=== PATIENT | male | born 1955 | race Caucasian/White ===

== ENCOUNTER 2016-08-14 11:37 | Emergency (ER) | payer OTHER, MEDICARE ==
[~2016-08-14] VITALS: Ht 170.2 cm; Wt 84.0 kg
[~2016-08-14 11:37] MED LIST: ASPI-1035 PO; CLON1TAB PO; DIVA500T PO; LISI10TA5 PO; METO50TA5 PO; QUET200T PO; QUET400T4 PO
[2016-08-14 11:40] VITALS: BP 130/80
== END 2016-08-14 19:33 | disposition left against medical advice (07) ==
LOC: ER 11:57
DX: Z00.8 Encounter for other general examination (principal); Z53.21 Procedure and treatment not carried out due to patient leaving prior to being seen by health care provider

== ENCOUNTER 2017-04-06 19:18 | Emergency (ER) | payer OTHER, MEDICARE ==
[~2017-04-06] VITALS: Ht 170.2 cm; Wt 77.0 kg
[~2017-04-06 19:18] MED LIST changes: -ASPI-1035 PO; +ASPI-1159 PO; +METO-539 PO; -METO50TA5 PO
[2017-04-06 19:33] VITALS: BP 140/77
== END 2017-04-06 22:15 | disposition left against medical advice (07) ==
LOC: ER 20:25
DX: Z53.21 Procedure and treatment not carried out due to patient leaving prior to being seen by health care provider (principal)

== ENCOUNTER 2018-02-24 10:53 | Emergency (ER) | payer OTHER, MEDICARE ==
[~2018-02-24] VITALS: Ht 172.7 cm; Wt 80.0 kg
[~2018-02-24 10:53] MED LIST changes: +DIVA-75 PO; -DIVA500T PO
[2018-02-24 11:09] VITALS: BP 173/86
== END 2018-02-24 11:34 | disposition home or self-care (01) ==
LOC: ER 10:53
DX: I10 Essential (primary) hypertension (principal); Z86.59 Personal history of other mental and behavioral disorders; Z79.899 Other long term (current) drug therapy; Z79.82 Long term (current) use of aspirin
CPT/HCPCS: 82962; 99283

== ENCOUNTER 2019-09-17 22:11 | Emergency (ER) | payer OTHER, MEDICARE ==
[~2019-09-17] VITALS: Ht 175.3 cm; Wt 82.0 kg
[~2019-09-17 22:11] MED LIST changes: -ASPI-1159 PO; +ASPI-1497 PO
[2019-09-18] MEDS ORDERED: LORAZEPAM 1MG TABLET PO ONE (00:15)
[2019-09-18 00:26] VITALS: BP 135/79
== END 2019-09-18 00:27 | disposition home or self-care (01) ==
LOC: ER 22:11
DX: F41.0 Panic disorder [episodic paroxysmal anxiety] (principal); R03.0 Elevated blood-pressure reading, without diagnosis of hypertension
CPT/HCPCS: 99283

== ENCOUNTER 2024-04-25 13:10 | Emergency (ER) | payer OTHER, MEDICARE ==
[~2024-04-25] VITALS: Ht 170.2 cm; Wt 87.0 kg
[~2024-04-25 13:10] MED LIST changes: -CLON1TAB PO; +CLON1TAB2 PO; +LISI10TA26 PO; -LISI10TA5 PO
[2024-04-25] MEDS: HALOPERIDOL LACTATE 5MG/ML VIAL IM STA (14:11)
[2024-04-25] MEDS: LORAZEPAM 2MG/ML INJ IM STA (14:11)
[2024-04-25] MEDS: DIPHENHYDRAMINE 50MG/ML VIAL IM STA (14:11)
[2024-04-25 15:15] VITALS: O2SAT 100
[2024-04-25 16:39] LABS: BASOPHILS % 0.3 % (0.0-2.0); DIFFERENTIAL COMMENT 0; EOSINOPHILS % 2.3 % (0.0-5.0); HEMOGLOBIN. 14.8 g/dL (14.0-18.0); LYMPHOCYTES % 30.6 % (20.0-50.0); MEAN CORPUSCULAR HEMOGLOBIN 34.7 pg (28.0-32.0); MEAN CORPUSCULAR HGB CONC 33.6 g/dL (31.0-37.0); MEAN CORPUSCULAR VOLUME 103.2 fL (80.0-94.0); MEAN PLATELET VOLUME 8.2 fl (7.4-10.4); MONOCYTES % 11.7 % (2.0-8.0); NEUTROPHILS % 55.1 % (40.0-76.0); PLATELET 140 x1000/uL (130-400); RED BLOOD CELL COUNT 4.26 mill/uL (4.7-6.1); RED CELL DISTRIBUTION WIDTH 13.3 % (11.6-14.6); WHITE BLOOD COUNT 5.4 x1000/uL (4.5-11.0)
[2024-04-25 16:40] LABS: CHLORIDE 108 mEq/L (98-107); POTASSIUM 4.4 mEq/L (3.5-5.1); SODIUM 142 mEq/L (136-145)
[2024-04-25 16:41] LABS: CARBON DIOXIDE 31 mEq/L (21-32)
[2024-04-25 16:42] LABS: CALCIUM 9.2 mg/dL (8.7-10.4)
[2024-04-25 16:46] LABS: GLUCOSE 93 mg/dL (70-105)
[2024-04-25 16:47] LABS: UREA NITROGEN BLOOD 10 mg/dL (9-23)
[2024-04-25 16:49] LABS: ACETAMINOPHEN < 2 ug/mL (10-30)
[2024-04-25 16:52] LABS: ETHANOL BLOOD < 10 mg/dL (<10)
[2024-04-25 17:12] LABS: CLARITY URINE CLEAR (CLEAR); COLOR URINE YELLOW (YELLOW); GLUCOSE URINE 3+ (NEGATIVE); KETONES URINE 1+ (NEGATIVE); LEUKOCYTE ESTERASE URINE NEGATIVE (NEGATIVE); NITRITE URINE NEGATIVE (NEGATIVE); OCCULT BLOOD URINE NEGATIVE (NEGATIVE); PH URINE 7.5 (4.5-8.0); PROTEIN URINE 1+ (NEGATIVE); SPECIFIC GRAVITY URINE 1.024 (1.005-1.030)
[2024-04-25 17:21] LABS: *AMPHETAMINES SCREEN URINE NEGATIVE (NEGATIVE); *BENZODIAZEPINES SCREEN URINE NEGATIVE (NEGATIVE)
[2024-04-25 17:22] LABS: *BARBITURATES SCREEN URINE NEGATIVE (NEGATIVE); *COCAINE SCREEN URINE NEGATIVE (NEGATIVE); CANNABINOID URINE SCREEN NEGATIVE (NEGATIVE); ECSTASY MDMA SCREEN URINE NEGATIVE (NEGATIVE); METHADONE URINE SCREEN NEGATIVE (NEGATIVE); OPIATES URINE SCREEN NEGATIVE (NEGATIVE); PHENCYCLIDINE URINE SCREEN NEGATIVE (NEGATIVE)
[2024-04-25 17:37] LABS: BACTERIA URINE NONE SEEN; RBC URINE 0-2 /hpf (0-2); SQUAMOUS EPITHELIAL CELL URINE FEW /lpf (RARE/1+); WBC URINE NONE SEEN /hpf (0-2)
[2024-04-26] MEDS: LORAZEPAM 1MG TABLET PO ONE (05:18)
[2024-04-26] MEDS: ARIPIPRAZOLE 5MG TABLET PO SCH (10:12)
[2024-04-26 13:44] VITALS: BP 144/70; PULSE 88; RESP 16; TEMP 36.66960; O2SAT 100
[2024-04-26] MEDS ORDERED: QUETIAPINE FUMARATE 50MG TABLET PO SCH (21:00)
[2024-04-26] MEDS ORDERED: DIVALPROEX SODIUM 500MG DR TABLET PO SCH (21:00)
== END 2024-04-26 14:19 ==
LOC: ER 13:10
DX: R46.89 Other symptoms and signs involving appearance and behavior (principal); Z79.82 Long term (current) use of aspirin; Z79.899 Other long term (current) drug therapy; Z20.822 Contact with and (suspected) exposure to COVID-19
CPT/HCPCS: 80305; 80048; 81003; 80307; 80329; 80320; 85025; 36415; 96372; 99291; 87426; J1200; J1630; J2060; G0480

== ENCOUNTER 2024-09-15 03:51 | Emergency (ER) | payer MEDICARE, MEDICAID ==
[~2024-09-15] VITALS: Ht 177.8 cm; Wt 79.4 kg
[2024-09-15 03:58] VITALS: O2SAT 96
[2024-09-15 05:12] LABS: BASOPHILS % 0.8 % (0.0-2.0); DIFFERENTIAL COMMENT 0; EOSINOPHILS % 2.9 % (0.0-5.0); HEMATOCRIT. 47.4 % (42.0-52.0); HEMOGLOBIN. 15.8 g/dL (14.0-18.0); LYMPHOCYTES % 22.2 % (20.0-50.0); MEAN CORPUSCULAR HEMOGLOBIN 33.8 pg (28.0-32.0); MEAN CORPUSCULAR HGB CONC 33.4 g/dL (31.0-37.0); MEAN CORPUSCULAR VOLUME 101.5 fL (80.0-94.0); MEAN PLATELET VOLUME 8.2 fl (7.4-10.4); MONOCYTES % 11.2 % (2.0-8.0); NEUTROPHILS % 62.9 % (40.0-76.0); PLATELET 149 x1000/uL (130-400); RED BLOOD CELL COUNT 4.67 mill/uL (4.7-6.1); RED CELL DISTRIBUTION WIDTH 13.8 % (11.6-14.6); WHITE BLOOD COUNT 5.2 x1000/uL (4.5-11.0)
[2024-09-15 05:43] LABS: CHLORIDE 104 mEq/L (98-107); POTASSIUM 4.3 mEq/L (3.5-5.1); SODIUM 143 mEq/L (136-145)
[2024-09-15 05:44] LABS: CALCIUM 8.9 mg/dL (8.7-10.4); CARBON DIOXIDE 29 mEq/L (21-32)
[2024-09-15 05:49] LABS: CREATININE 1.1 mg/dL (0.6-1.3); GLUCOSE 109 mg/dL (70-105); UREA NITROGEN BLOOD 12 mg/dL (9-23)
[2024-09-15 05:51] LABS: ACETAMINOPHEN < 2 ug/mL (10-30); ALANINE AMINOTRANSFERASE 26 IU/L (10-49); ASPARTATE AMINOTRANSFERASE 44 IU/L (<34); BILIRUBIN DIRECT 0.2 mg/dL (<=3.0)
[2024-09-15 05:52] LABS: CLARITY URINE CLEAR (CLEAR); COLOR URINE YELLOW (YELLOW); GLUCOSE URINE 3+ (NEGATIVE); KETONES URINE TRACE (NEGATIVE); LEUKOCYTE ESTERASE URINE NEGATIVE (NEGATIVE); NITRITE URINE NEGATIVE (NEGATIVE); OCCULT BLOOD URINE 1+ (NEGATIVE); PH URINE 5.5 (4.5-8.0); PROTEIN URINE NEGATIVE (NEGATIVE); SPECIFIC GRAVITY URINE 1.037 (1.005-1.030)
[2024-09-15 05:52] LABS: BILIRUBIN TOTAL 0.6 mg/dL (0.1-1.0); PROTEIN TOTAL 7.3 g/dL (6.0-8.3)
[2024-09-15 06:08] LABS: ETHANOL BLOOD < 10 mg/dL (<10)
[2024-09-15 06:29] LABS: BACTERIA URINE TRACE; SQUAMOUS EPITHELIAL CELL URINE 1+ /lpf (RARE/1+)
[2024-09-15 06:30] LABS: HYALINE CASTS URINE 0-5 /lpf
[2024-09-15 06:38] LABS: *AMPHETAMINES SCREEN URINE NEGATIVE (NEGATIVE); *BARBITURATES SCREEN URINE NEGATIVE (NEGATIVE); *BENZODIAZEPINES SCREEN URINE NEGATIVE (NEGATIVE); *COCAINE SCREEN URINE NEGATIVE (NEGATIVE); CANNABINOID URINE SCREEN NEGATIVE (NEGATIVE); ECSTASY MDMA SCREEN URINE NEGATIVE (NEGATIVE); METHADONE URINE SCREEN NEGATIVE (NEGATIVE); OPIATES URINE SCREEN NEGATIVE (NEGATIVE); PHENCYCLIDINE URINE SCREEN NEGATIVE (NEGATIVE)
[2024-09-15] MEDS: ACETAMINOPHEN 325MG TABLET PO ONE (07:49)
[2024-09-15] MEDS: OLANZAPINE 5MG TABLET ODT PO SCH (09:39)
[2024-09-15] MEDS: DIVALPROEX SODIUM 500MG DR TABLET PO SCH (09:39)
[2024-09-15] MEDS: OLANZAPINE 10MG TABLET PO SCH (12:41)
[2024-09-15] MEDS: METOPROLOL TARTRATE 25MG TABLET PO SCH (12:41)
[2024-09-16 08:07] VITALS: BP 124/79; PULSE 60; RESP 16; TEMP 36.9; O2SAT 96
== END 2024-09-16 10:00 | disposition home or self-care (01) ==
LOC: ER 04:19
DX: F98.9 Unspecified behavioral and emotional disorders with onset usually occurring in childhood and adolescence (principal); F41.9 Anxiety disorder, unspecified; F31.9 Bipolar disorder, unspecified; F20.9 Schizophrenia, unspecified; Z79.899 Other long term (current) drug therapy; Z79.82 Long term (current) use of aspirin; Z20.822 Contact with and (suspected) exposure to COVID-19
CPT/HCPCS: 36415; 80048; 80076; 80305; 80307; 80320; 80329; 81003; 85025; 87426; 99285; A4606; G0480